=== PATIENT | male | born 1970 | race Hispanic/Latino ===

== ENCOUNTER 2020-08-30 10:10 | Inpatient (IN) | payer BC, OTHER ==
[2020-08-30] MEDS ORDERED: Nitroglycerin 0.4 MG TAB 1 EACH ONE (10:25)
[2020-08-30] MEDS ORDERED: Aspirin Chewable 81 MG TAB ONE (10:25)
[2020-08-30] MEDS ORDERED: Nitroglycerin 2% Ointment 1 INCH/1 GM Packet ONE (10:25)
[2020-08-30 11:14] LABS: ALT (SGPT) 37 U/L (8-55); AST (SGOT) 30 U/L (5-34); Albumin 4.1 g/dL (3.5-5.0); Alkaline Phosphatase 71 U/L (40-110); Anion Gap 13 mmol/L (10-20); BUN (Urea Nitrogen) 13 mg/dL (8.9-20.6); Bilirubin, Total 0.7 mg/dL (0.2-1.2); Calc. Creatinine Clearance 0 mL/min (70-130); Calcium 9.5 mg/dL (7.8-10.44); Carbon Dioxide 24 mmol/L (22-29); Chloride 107 mmol/L (98-107); Globulin 3.3 g/dL (2.4-3.5); Glucose 77 mg/dL (70-105); Potassium 4.2 mmol/L (3.5-5.1); Protein, Total 7.4 g/dL (6.0-8.3); Sodium 140 mmol/L (136-145)
[2020-08-30 11:15] LABS: Hemoglobin 15.3 g/dL (14.0-18.0); Mean Corpuscular HGB CONC 32.9 g/dL (32.0-36.0); Mean Corpuscular Hemoglobin 32.4 pg (27.0-31.0); Mean Corpuscular Volume 98.3 fL (78.0-98.0); Mean Platelet Volume 8.7 fL (7.4-10.4); Platelet Count 244 thou/uL (130-400); RBC Distribution Width 12.4 % (11.5-14.5); Red Blood Cell (RBC) Count 4.73 mill/uL (4.70-6.10)
[2020-08-30 11:19] LABS: Band 4 % (5-11); Eosinophils 1 % (0-10); Lymphocytes 41 % (21-51); MDiff Complete? YES; Monocytes 11 % (0-10); Myelocyte 1 % (0-0); Neutrophil 35 % (42-75); Platelet Morphology Comment Appears Adequate; RBC Morphology Normal; Reactive Lymphocytes 6 % (0-10); White Blood Cell (WBC) Count 5.6 thou/uL (4.8-10.8)
[2020-08-30 11:43] LABS: CKMB 6.5 ng/mL (0-6.6)
[2020-08-30] MEDS ORDERED: Enoxaparin Sodium 80 MG/0.8 ML SYRINGE ONE (11:50)
[2020-08-30] MEDS ORDERED: Bisacodyl 10 MG SUPP PR PRN (11:56)
[2020-08-30] MEDS ORDERED: Senokot S 8.6-50 MG TAB PO PRN (11:56)
[2020-08-30] MEDS ORDERED: Calcium Carbonate 500 MG ChewTAB PO PRN (11:56)
[2020-08-30] MEDS ORDERED: Guaifenesin DM 100-10/5 ML UDCUP PO PRN (11:56)
[2020-08-30] MEDS ORDERED: Ondansetron PF 4 MG/2 ML Vial IVP PRN (11:56)
[2020-08-30] MEDS ORDERED: Sodium Chloride 0.9% 1,000 ML IV SCH (12:00)
[2020-08-30 12:49] LABS: Troponin I 0.541 ng/mL (< 0.028)
[2020-08-30 12:58] LABS: SARS-CoV-2 NAA Rapid Test Not Detected (NotDetected)
[2020-08-30 13:54] VITALS: BMI 27.5
[2020-08-30 15:08] LABS: Troponin I 0.996 ng/mL (< 0.028)
[2020-08-30 15:36] LABS: Troponin I 1.635 ng/mL (< 0.028)
[2020-08-30] MEDS: Nitroglycerin 2% Ointment 1 INCH/1 GM Packet TOP SCH ×2 (15:42→20:30)
[2020-08-30] MEDS: Acetaminophen 325 MG TAB PO PRN (17:53)
[2020-08-30 17:55] LABS: Troponin I 2.592 ng/mL (< 0.028)
[2020-08-30] MEDS ORDERED: Communication Order-Pharmacy FS SCH (19:00)
[2020-08-30] MEDS: Sodium Chloride 0.9% 1,000 ML IV SCH (20:28)
[2020-08-30] MEDS ORDERED: Enoxaparin Sodium 80 MG/0.8 ML SYRINGE SC SCH (21:00)
[2020-08-30] MEDS ORDERED: Metoprolol Tartrate 25 MG TAB PO SCH (21:00)
[2020-08-31] MEDS: Sodium Chloride 0.9% 1,000 ML IV SCH ×2 (01:24→18:07)
[2020-08-31 06:02] LABS: Anion Gap 10 mmol/L (10-20); BUN (Urea Nitrogen) 15 mg/dL (8.9-20.6); Calc. Creatinine Clearance 85 mL/min (70-130); Calcium 9.1 mg/dL (7.8-10.44); Carbon Dioxide 26 mmol/L (22-29); Cardiac Risk 4.7 (Less than 4.5); Chloride 108 mmol/L (98-107); Cholesterol 177 mg/dl (< 200 Desired); Glucose 89 mg/dL (70-105); HDL Cholesterol 38 mg/dL (>60 Neg Risk); LDL Cholesterol, Calculated 104 mg/dL; Potassium 4.3 mmol/L (3.5-5.1); Sodium 140 mmol/L (136-145); Triglycerides 176 mg/dL (Less than 150)
[2020-08-31 06:18] LABS: Band 8 % (5-11); Eosinophils 1 % (0-10); Hemoglobin 15.1 g/dL (14.0-18.0); Lymphocytes 61 % (21-51); MDiff Complete? YES; Mean Corpuscular HGB CONC 32.5 g/dL (32.0-36.0); Mean Corpuscular Hemoglobin 32.3 pg (27.0-31.0); Mean Corpuscular Volume 99.1 fL (78.0-98.0); Mean Platelet Volume 8.7 fL (7.4-10.4); Monocytes 11 % (0-10); Neutrophil 19 % (42-75); Platelet Count 249 thou/uL (130-400); RBC Distribution Width 12.3 % (11.5-14.5); Red Blood Cell (RBC) Count 4.68 mill/uL (4.70-6.10); White Blood Cell (WBC) Count 4.9 thou/uL (4.8-10.8)
[2020-08-31] MEDS: Nitroglycerin 2% Ointment 1 INCH/1 GM Packet TOP SCH ×3 (06:27→21:07)
[2020-08-31] MEDS: Aspirin Chewable 81 MG TAB PO SCH (06:27)
[2020-08-31] MEDS ORDERED: Lidocaine 1% (PF) 30 ML VIAL ONE (07:40)
[2020-08-31] MEDS ORDERED: Fentanyl 100 MCG/2 ML VIAL ONE (08:06)
[2020-08-31] MEDS ORDERED: Midazolam HCl 2 mg/2 ml Vial ONE (08:06)
[2020-08-31] MEDS ORDERED: Heparin 10,000 UNITS/ 10 ML VIAL ONE ×2 (08:23→08:56)
[2020-08-31] MEDS ORDERED: Nitroglycerin 100MG/250ML BOT 250 ML ONE (08:32)
[2020-08-31] MEDS ORDERED: Enoxaparin Sodium 40 MG/0.4 ML SYRINGE SC SCH (09:00)
[2020-08-31] MEDS ORDERED: TICAGRELOR 90 MG TABLET ONE (09:50)
[2020-08-31] MEDS ORDERED: Nitroglycerin 50 MG/250 ML BOT 250 ML ONE (09:58)
[2020-08-31] MEDS ORDERED: Nitroglycerin 50 MG/250 ML BOT 250 ML IVPB SCH (10:15)
[2020-08-31] MEDS ORDERED: TICAGRELOR 90 MG TABLET PO SCH (10:30)
[2020-08-31] MEDS ORDERED: Iopamidol 370 76% 100 ML VIAL ONE (11:58)
[2020-08-31] MEDS ORDERED: Iopamidol 370 76% 50 ML VIAL FS ONE (11:58)
[2020-08-31] MEDS: Acetaminophen 325 MG TAB PO PRN ×2 (12:36→20:01)
[2020-08-31] MEDS: Atorvastatin Calcium 40 MG TAB PO SCH (20:01)
[2020-08-31] MEDS: TICAGRELOR 90 MG TABLET PO SCH (20:02)
[2020-09-01 03:48] LABS: #Basophils 0.1 thou/uL (0.0-0.2); #Eosinphils 0.2 thou/uL (0.0-0.7); #Lymphocytes 2.4 thou/uL (1.20-3.40); #Monocytes 0.8 thou/uL (0.11-0.59); #Neutrophils 3.5 thou/uL (1.40-6.50); %Basophils 1.1 % (0.0-1.0); %Eosinophils 2.6 % (0.0-10.0); %Lymphocytes 35.1 % (21.0-51.0); %Monocytes 10.9 % (0.0-10.0); %Neutrophils 50.4 % (42.0-75.0); Mean Corpuscular HGB CONC 32.4 g/dL (32.0-36.0); Mean Corpuscular Hemoglobin 32.2 pg (27.0-31.0); Mean Corpuscular Volume 99.3 fL (78.0-98.0); Mean Platelet Volume 8.9 fL (7.4-10.4); Platelet Count 218 thou/uL (130-400); RBC Distribution Width 12.4 % (11.5-14.5); Red Blood Cell (RBC) Count 4.35 mill/uL (4.70-6.10); White Blood Cell (WBC) Count 6.9 thou/uL (4.8-10.8)
[2020-09-01 04:05] LABS: ALT (SGPT) 31 U/L (8-55); AST (SGOT) 33 U/L (5-34); Albumin 3.6 g/dL (3.5-5.0); Alkaline Phosphatase 64 U/L (40-110); Anion Gap 11 mmol/L (10-20); BUN (Urea Nitrogen) 10 mg/dL (8.9-20.6); Bilirubin, Total 0.8 mg/dL (0.2-1.2); Calc. Creatinine Clearance 88 mL/min (70-130); Calcium 9.1 mg/dL (7.8-10.44); Carbon Dioxide 26 mmol/L (22-29); Chloride 107 mmol/L (98-107); Globulin 2.7 g/dL (2.4-3.5); Glucose 84 mg/dL (70-105); Potassium 3.9 mmol/L (3.5-5.1); Protein, Total 6.3 g/dL (6.0-8.3); Sodium 140 mmol/L (136-145)
[2020-09-01] MEDS: Nitroglycerin 2% Ointment 1 INCH/1 GM Packet TOP SCH ×2 (05:23→15:23)
[2020-09-01] MEDS: Sodium Chloride 0.9% 1,000 ML IV SCH (05:24)
[2020-09-01] MEDS: Aspirin Chewable 81 MG TAB PO SCH (08:14)
[2020-09-01] MEDS: TICAGRELOR 90 MG TABLET PO SCH ×2 (08:14→21:16)
[2020-09-01] MEDS: Acetaminophen 325 MG TAB PO PRN ×2 (08:15→13:24)
[2020-09-01] MEDS: Atorvastatin Calcium 40 MG TAB PO SCH (21:16)
[2020-09-02] MEDS: Cyanocobalamin (Vitamin B-12) 1,000 MCG TAB PO SCH (09:39)
[2020-09-02] MEDS: TICAGRELOR 90 MG TABLET PO SCH ×2 (09:39→20:40)
[2020-09-02] MEDS: Folic Acid 1 MG TAB PO SCH (09:39)
[2020-09-02] MEDS: Multivit, Therapeutic 1 TAB PO SCH (09:39)
[2020-09-02] MEDS: Aspirin Chewable 81 MG TAB PO SCH (09:39)
[2020-09-02] MEDS: Atorvastatin Calcium 40 MG TAB PO SCH (20:40)
[2020-09-03] MEDS: Folic Acid 1 MG TAB PO SCH (08:57)
[2020-09-03] MEDS: Cyanocobalamin (Vitamin B-12) 1,000 MCG TAB PO SCH (08:57)
[2020-09-03] MEDS: Aspirin Chewable 81 MG TAB PO SCH (08:57)
[2020-09-03] MEDS: TICAGRELOR 90 MG TABLET PO SCH (08:57)
[2020-09-03] MEDS: Multivit, Therapeutic 1 TAB PO SCH (08:57)
[2020-09-03 09:49] VITALS: BP 110/58; TEMP 97.3
== END 2020-09-03 10:15 | disposition home or self-care (01) | DRG 247 ==
LOC: ERS 10:10 → 2SW 11:57 → OBSVTOIN 11:57 → 2SW 13:22 → CCU 08-31 12:30 → 2NO 09-01 18:13
PROVIDERS: ADMIT Internal Medicine; ATTEND Internal Medicine
PROC: 027034Z Dilation of Coronary Artery, One Artery with Drug-eluting Intraluminal Device, Percutaneous Approach (ICD-10-PCS; principal; 2020-08-31)
PROC: 4A023N7 Measurement of Cardiac Sampling and Pressure, Left Heart, Percutaneous Approach (ICD-10-PCS; 2020-08-31)
PROC: B2111ZZ Fluoroscopy of Multiple Coronary Arteries using Low Osmolar Contrast (ICD-10-PCS; 2020-08-31)
PROC: B2151ZZ Fluoroscopy of Left Heart using Low Osmolar Contrast (ICD-10-PCS; 2020-08-31)
DX: I21.4 Non-ST elevation (NSTEMI) myocardial infarction (principal); E78.5 Hyperlipidemia, unspecified; I25.119 Atherosclerotic heart disease of native coronary artery with unspecified angina pectoris; I08.1 Rheumatic disorders of both mitral and tricuspid valves; N18.2 Chronic kidney disease, stage 2 (mild); Z20.822 Contact with and (suspected) exposure to COVID-19; Z90.81 Acquired absence of spleen; Z87.891 Personal history of nicotine dependence; Z98.890 Other specified postprocedural states
CPT/HCPCS: 0240U; 36415; 71045; 76942; 80048; 80053; 80061; 82553; 83880; 84484; 85025; 85347; 85379; 92928; 93005; 93010; 93306; 93458; 93798; 94760; 96372; 99152; 99153; C9600; G0378; J1644; J1650; J2001; J2250; J3010; Q9967

== ENCOUNTER 2020-09-25 10:08 | Outpatient (CLI) | payer BC ==
[2020-09-25 11:41] LABS: #Eosinphils 0.1 10x3/uL (0.0-0.5); #Monocytes 0.7 10x3/uL (0.0-1.1); #Neutrophils 1.8 10x3/uL (1.5-8.4); %Basophils 0.9 % (0.0-2.0); %Eosinophils 1.6 % (0.0-6.0); %Lymphocytes 38.1 % (18.0-47.0); %Monocytes 17.1 % (0.0-10.0); %Neutrophils 42.1 % (40.0-75.0); Hemoglobin 15.1 g/dL (13.5-17.5); Mean Corpuscular HGB CONC 32.8 g/dL (32.0-36.0); Mean Corpuscular Hemoglobin 31.5 pg (27.0-33.0); Mean Corpuscular Volume 96.2 fl (81.2-95.1); Mean Platelet Volume 11.8 fl (7.4-10.4); Platelet Count 273 10x3/uL (150-450); RBC Distribution Width 13.8 % (11.5-14.5); Red Blood Cell (RBC) Count 4.79 10x6/uL (4.32-5.72); White Blood Cell (WBC) Count 4.3 10x3/uL (3.5-10.5)
[2020-09-25 11:59] LABS: PTT 27.9 sec (22.0-33.0); Prothrombin Time 10.9 sec (9.5-12.1)
[2020-09-25 12:02] LABS: ALT (SGPT) 64 U/L (8-55); AST (SGOT) 33 U/L (5-34); Albumin 4.4 g/dL (3.5-5.0); Alkaline Phosphatase 83 U/L (40-110); Anion Gap 14 mmol/L (10-20); BUN (Urea Nitrogen) 14 mg/dL (8.9-20.6); Bilirubin, Total 0.7 mg/dL (0.2-1.2); Calc. Creatinine Clearance 0 mL/min (70-130); Carbon Dioxide 26 mmol/L (22-29); Chloride 105 mmol/L (98-107); Globulin 3.1 g/dL (2.4-3.5); Glucose 74 mg/dL (70-105); Protein, Total 7.5 g/dL (6.0-8.3); Sodium 140 mmol/L (136-145)
[2020-09-25 20:37] LABS: SARS-CoV-2 PCR by NAA Not Detected (NotDetected)
== END 2020-09-25 10:09 | disposition home or self-care (01) ==
LOC: LABBT 10:08
PROVIDERS: ATTEND Internal Medicine Cardiovascular Disease
DX: Z01.812 Encounter for preprocedural laboratory examination (principal); Z20.822 Contact with and (suspected) exposure to COVID-19; I25.10 Atherosclerotic heart disease of native coronary artery without angina pectoris
CPT/HCPCS: 80053; 85025; 85610; 85730; 87635; U0003; U0005

== ENCOUNTER 2020-09-30 05:55 | Day surgery (SDC) | payer BC ==
[2020-09-27 10:04] VITALS: BMI 28.6
[2020-09-30] MEDS ORDERED: Lidocaine 1% (PF) 30 ML VIAL ONE (06:52)
[2020-09-30] MEDS ORDERED: Midazolam HCl 2 mg/2 ml Vial ONE (07:25)
[2020-09-30] MEDS ORDERED: Fentanyl 100 MCG/2 ML VIAL ONE (07:25)
[2020-09-30] MEDS ORDERED: Heparin 10,000 UNITS/ 10 ML VIAL ONE (07:50)
[2020-09-30] MEDS ORDERED: Nitroglycerin 100MG/250ML BOT 250 ML ONE (07:50)
[2020-09-30] MEDS ORDERED: Iopamidol 370 76% 100 ML VIAL ONE (10:53)
[2020-09-30] MEDS ORDERED: Iopamidol 370 76% 50 ML VIAL FS ONE (10:53)
[2020-09-30] MEDS ORDERED: Acetaminophen 325 MG TAB ONE (17:57)
== END 2020-09-30 19:00 | disposition home or self-care (01) ==
LOC: CCL 05:55
PROVIDERS: ATTEND Internal Medicine Cardiovascular Disease
PROC: B2111ZZ Fluoroscopy of Multiple Coronary Arteries using Low Osmolar Contrast (ICD-10-PCS; principal; 2020-09-30)
PROC: 4A023N7 Measurement of Cardiac Sampling and Pressure, Left Heart, Percutaneous Approach (ICD-10-PCS; principal; 2020-09-30)
DX: I25.10 Atherosclerotic heart disease of native coronary artery without angina pectoris (principal); E78.00 Pure hypercholesterolemia, unspecified; Z79.02 Long term (current) use of antithrombotics/antiplatelets; Z79.82 Long term (current) use of aspirin; Z79.899 Other long term (current) drug therapy
CPT/HCPCS: 76942; 85347; 92928; 93005; 93458; 97139; 99152; 99153; C1874; C9600; J1644; J2001; J2250; J3010; Q9967

== ENCOUNTER 2021-08-20 10:28 | Observation (INO) | payer BC ==
[2021-08-20 11:07] LABS: Hemoglobin 14.7 g/dL (14.0-18.0); Mean Corpuscular HGB CONC 32.2 g/dL (32.0-36.0); Mean Corpuscular Hemoglobin 32.9 pg (27.0-31.0); Mean Platelet Volume 8.2 fL (7.4-10.4); Platelet Count 225 thou/uL (130-400); RBC Distribution Width 12.3 % (11.5-14.5); Red Blood Cell (RBC) Count 4.45 mill/uL (4.70-6.10); White Blood Cell (WBC) Count 5.4 thou/uL (4.8-10.8)
[2021-08-20] MEDS ORDERED: Aspirin Chewable 81 MG TAB ONE (11:11)
[2021-08-20 11:17] LABS: ALT (SGPT) 47 U/L (8-55); AST (SGOT) 33 U/L (5-34); Albumin 4.2 g/dL (3.5-5.0); Alkaline Phosphatase 56 U/L (40-110); Anion Gap 13 mmol/L (10-20); BUN (Urea Nitrogen) 16 mg/dL (8.9-20.6); Bilirubin, Total 0.5 mg/dL (0.2-1.2); CK (CPK) 330 U/L (30-200); Calc. Creatinine Clearance 0 mL/min (70-130); Calcium 9.3 mg/dL (7.8-10.44); Carbon Dioxide 23 mmol/L (22-29); Chloride 108 mmol/L (98-107); Globulin 2.5 g/dL (2.4-3.5); Glucose 87 mg/dL (70-105); Potassium 4.1 mmol/L (3.5-5.1); Protein, Total 6.7 g/dL (6.0-8.3); Sodium 140 mmol/L (136-145)
[2021-08-20 11:29] LABS: Band 5 % (5-11); Burr Cells SLIGHT = 2-5 cells (100X) (0-1/hpf); Eosinophils 1 % (0-10); Lymphocytes 32 % (21-51); MDiff Complete? YES; Macrocytosis MODERATE=16-30 cells (100X) (0-5/hpf); Monocytes 11 % (0-10); Neutrophil 49 % (42-75); Ovalocytes SLIGHT = 2-5 cells (100X) (0-1/hpf); Platelet Morphology Comment Appears Adequate
[2021-08-20 14:08] LABS: Troponin I Less than 0.010 ng/mL (< 0.028)
[2021-08-20 14:14] VITALS: BMI 28.5
[2021-08-20] MEDS ORDERED: Ondansetron PF 4 MG/2 ML Vial IVP PRN (16:41)
[2021-08-20] MEDS ORDERED: hydrALAZINE 20 MG/ML VIAL SLOW IVP PRN (16:41)
[2021-08-20] MEDS ORDERED: Nitroglycerin 0.4 MG TAB (25 Tab Bottle) SL PRN (16:41)
[2021-08-20] MEDS ORDERED: Acetaminophen 500 MG TAB PO PRN (16:41)
[2021-08-20] MEDS ORDERED: Ondansetron ODT 4 MG TAB PO PRN (16:41)
[2021-08-20 17:09] LABS: Troponin I Less than 0.010 ng/mL (< 0.028)
[2021-08-20] MEDS: TICAGRELOR 90 MG TABLET PO SCH (20:44)
[2021-08-20] MEDS: Famotidine 20 MG TAB PO SCH (20:44)
[2021-08-20] MEDS ORDERED: Atorvastatin Calcium 40 MG TAB PO SCH (21:00)
[2021-08-20 23:23] LABS: SARS-CoV-2 PCR by NAA Not Detected (NotDetected)
[2021-08-21 08:16] VITALS: TEMP 97.6
[2021-08-21] MEDS ORDERED: Aspirin Chewable 81 MG TAB PO SCH (09:00)
[2021-08-21] MEDS ORDERED: Multivit, Therapeutic 1 TAB PO SCH (09:00)
[2021-08-21] MEDS: Famotidine 20 MG TAB PO SCH (14:00)
[2021-08-21] MEDS: TICAGRELOR 90 MG TABLET PO SCH (14:09)
[2021-08-21 14:19] VITALS: BP 123/69
== END 2021-08-21 15:38 | disposition home or self-care (01) ==
LOC: ERS 10:28 → 2SW 12:44 → OBSVTOIN 16:41 → INTOOBSV 16:41
PROVIDERS: ADMIT Family Medicine; ATTEND Internal Medicine
DX: R07.9 Chest pain, unspecified (principal); I25.10 Atherosclerotic heart disease of native coronary artery without angina pectoris; I25.2 Old myocardial infarction; E78.5 Hyperlipidemia, unspecified; N18.2 Chronic kidney disease, stage 2 (mild); Z87.891 Personal history of nicotine dependence; Z79.02 Long term (current) use of antithrombotics/antiplatelets; Z79.82 Long term (current) use of aspirin; Z79.899 Other long term (current) drug therapy; Z95.5 Presence of coronary angioplasty implant and graft; Z20.822 Contact with and (suspected) exposure to COVID-19
CPT/HCPCS: 36415; 71045; 78452; 80053; 80061; 82550; 83690; 83880; 84484; 85025; 85379; 93005; 93017; A9500; G0378; U0003; U0005

== ENCOUNTER 2022-03-24 00:49 | Inpatient (IN) | payer BC ==
[2022-03-24 02:01] LABS: #Basophils 0.1 thou/uL (0.0-0.2); #Eosinphils 0.1 thou/uL (0.0-0.7); #Lymphocytes 3.3 thou/uL (1.20-3.40); #Monocytes 0.8 thou/uL (0.11-0.59); #Neutrophils 2.6 thou/uL (1.40-6.50); %Basophils 1.2 % (0.0-1.0); %Lymphocytes 48.5 % (21.0-51.0); %Monocytes 11.3 % (0.0-10.0); Hemoglobin 13.5 g/dL (14.0-18.0); Mean Corpuscular HGB CONC 31.6 g/dL (32.0-36.0); Mean Corpuscular Hemoglobin 31.3 pg (27.0-31.0); Mean Platelet Volume 8.7 fL (7.4-10.4); Platelet Count 220 10x3/uL (130-400); RBC Distribution Width 11.8 % (11.5-14.5); White Blood Cell (WBC) Count 6.9 10x3/uL (4.8-10.8)
[2022-03-24 02:12] LABS: INR-International Normal Ratio 0.9; Prothrombin Time 12.8 sec (12.0-14.7)
[2022-03-24 02:22] LABS: ALT (SGPT) 37 U/L (8-55); AST (SGOT) 29 U/L (5-34); Albumin 4.3 g/dL (3.5-5.0); Alkaline Phosphatase 66 U/L (40-110); Anion Gap 11 mmol/L (10-20); BUN (Urea Nitrogen) 19 mg/dL (8.9-20.6); Bilirubin, Total 0.4 mg/dL (0.2-1.2); Calc. Creatinine Clearance 0 mL/min (70-130); Calcium 9.1 mg/dL (7.8-10.44); Carbon Dioxide 26 mmol/L (22-29); Chloride 106 mmol/L (98-107); Estimated GFR 83; Globulin 2.9 g/dL (2.4-3.5); Glucose 82 mg/dL (70-105); Protein, Total 7.2 g/dL (6.0-8.3); Sodium 139 mmol/L (136-145)
[2022-03-24] MEDS ORDERED: Ondansetron ODT 4 MG TAB SL PRN (04:45)
[2022-03-24] MEDS ORDERED: Ondansetron PF 4 MG/2 ML Vial IVP PRN (04:45)
[2022-03-24] MEDS ORDERED: Acetaminophen 325 MG TAB PO PRN (04:58)
[2022-03-24] MEDS: Sodium Chloride 0.9% 1,000 ML IV SCH ×3 (06:06→21:01)
[2022-03-24 07:55] LABS: Hemoglobin 11.1 g/dL (14.0-18.0)
[2022-03-24] MEDS: Docusate 100 MG CAP PO SCH ×2 (08:31→21:05)
[2022-03-24] MEDS ORDERED: Iopamidol 370 76% 100 ML VIAL ONE (08:41)
[2022-03-24] MEDS ORDERED: FLU VACC QS2022-23(6MOS UP)/PF 60 MCG/0.5 ML SYRINGE IM ONE (09:15)
[2022-03-24 15:18] LABS: Hemoglobin 9.8 g/dL (14.0-18.0)
[2022-03-24 17:11] VITALS: BMI 28.1
[2022-03-24] MEDS ORDERED: GoLYTELY 4,000 ml Bottle PO SCH (17:30)
[2022-03-24 20:33] LABS: Hemoglobin 8.8 g/dL (14.0-18.0)
[2022-03-24 23:50] LABS: Hemoglobin 9.6 g/dL (14.0-18.0)
[2022-03-25 01:33] LABS: SARS-CoV-2 NAA Rapid Test Not Detected (NotDetected)
[2022-03-25 03:54] LABS: #Lymphocytes 2.2 thou/uL (1.20-3.40); #Monocytes 0.5 thou/uL (0.11-0.59); #Neutrophils 2.9 thou/uL (1.40-6.50); %Basophils 0.6 % (0.0-1.0); %Eosinophils 0.9 % (0.0-10.0); %Lymphocytes 38.3 % (21.0-51.0); %Monocytes 8.9 % (0.0-10.0); %Neutrophils 51.4 % (42.0-75.0); Hemoglobin 8.1 g/dL (14.0-18.0); Mean Corpuscular HGB CONC 32.4 g/dL (32.0-36.0); Mean Corpuscular Hemoglobin 32.2 pg (27.0-31.0); Mean Corpuscular Volume 99.2 fl (78.0-98.0); Mean Platelet Volume 8.6 fL (7.4-10.4); Platelet Count 201 10x3/uL (130-400); RBC Distribution Width 11.7 % (11.5-14.5); Red Blood Cell (RBC) Count 2.52 mill/uL (4.70-6.10); White Blood Cell (WBC) Count 5.7 10x3/uL (4.8-10.8)
[2022-03-25 04:25] LABS: Anion Gap 8 mmol/L (10-20); BUN (Urea Nitrogen) 11 mg/dL (8.9-20.6); Calc. Creatinine Clearance 128 mL/min (70-130); Calcium 7.8 mg/dL (7.8-10.44); Carbon Dioxide 26 mmol/L (22-29); Chloride 106 mmol/L (98-107); Estimated GFR 110; Glucose 80 mg/dL (70-105); Potassium 3.7 mmol/L (3.5-5.1); Sodium 136 mmol/L (136-145)
[2022-03-25] MEDS: Sodium Chloride 0.9% 1,000 ML IV SCH (05:34)
[2022-03-25] MEDS: Docusate 100 MG CAP PO SCH ×2 (09:33→20:34)
[2022-03-25] MEDS ORDERED: PROPOFOL 200 MG/20 ML VIAL ONE (12:35)
[2022-03-25] MEDS ORDERED: PHENYLEPHRINE-NS 100 MCG/ML 10 ML SYRINGE ONE (12:35)
[2022-03-25 14:53] LABS: Hemoglobin 8.5 g/dL (14.0-18.0)
[2022-03-25] MEDS ORDERED: Iron, Sodium Ferric Gluconate 250 MG in Sodium Chloride 0.9% 250 ML 250 ML IVPB SCH (19:30)
[2022-03-25 21:40] LABS: Hemoglobin 7.8 g/dL (14.0-18.0)
[2022-03-26 06:47] LABS: Mean Corpuscular HGB CONC 33.6 g/dL (32.0-36.0); Mean Corpuscular Hemoglobin 33.5 pg (27.0-31.0); Mean Corpuscular Volume 99.8 fl (78.0-98.0); Mean Platelet Volume 8.7 fL (7.4-10.4); Platelet Count 190 10x3/uL (130-400); RBC Distribution Width 11.7 % (11.5-14.5); Red Blood Cell (RBC) Count 2.37 mill/uL (4.70-6.10); White Blood Cell (WBC) Count 4.6 10x3/uL (4.8-10.8)
[2022-03-26 07:09] LABS: Anion Gap 9 mmol/L (10-20); BUN (Urea Nitrogen) 10 mg/dL (8.9-20.6); Calc. Creatinine Clearance 118 mL/min (70-130); Calcium 8.1 mg/dL (7.8-10.44); Carbon Dioxide 23 mmol/L (22-29); Chloride 104 mmol/L (98-107); Estimated GFR 107; Glucose 87 mg/dL (70-105); Potassium 3.7 mmol/L (3.5-5.1); Sodium 132 mmol/L (136-145)
[2022-03-26 07:31] LABS: Band 11 % (5-11); Eosinophils 2 % (0-10); Lymphocytes 61 % (21-51); MDiff Complete? YES; Monocytes 4 % (0-10); Neutrophil 20 % (42-75); Platelet Morphology Comment Appears Adequate; RBC Morphology Normal
[2022-03-26 08:02] VITALS: BP 102/63; TEMP 97.7
[2022-03-26] MEDS ORDERED: Clopidogrel Bisulfate 75 MG TAB PO SCH (09:00)
[2022-03-26] MEDS: Docusate 100 MG CAP PO SCH (11:15)
== END 2022-03-26 14:37 | disposition home or self-care (01) | DRG 920 ==
LOC: ERS 00:49 → ERHOLD 04:36 → IMCU/EMU 05:45 → SURG A 03-25 13:38 → T4-A 03-25 14:11
PROVIDERS: ADMIT Internal Medicine; ATTEND Internal Medicine
PROC: 6A550Z2 Pheresis of Platelets, Single (ICD-10-PCS; 2022-03-24)
PROC: 0W3P8ZZ Control Bleeding in Gastrointestinal Tract, Via Natural or Artificial Opening Endoscopic (ICD-10-PCS; principal; 2022-03-25)
DX: K91.840 Postprocedural hemorrhage of a digestive system organ or structure following a digestive system procedure (principal); D62 Acute posthemorrhagic anemia; Z20.822 Contact with and (suspected) exposure to COVID-19; I25.10 Atherosclerotic heart disease of native coronary artery without angina pectoris; E78.5 Hyperlipidemia, unspecified; Y84.8 Other medical procedures as the cause of abnormal reaction of the patient, or of later complication, without mention of misadventure at the time of the procedure; Z86.010 Personal history of colon polyps; Z95.5 Presence of coronary angioplasty implant and graft; Z87.891 Personal history of nicotine dependence
CPT/HCPCS: 36415; 36430; 74177; 80048; 80053; 85025; 85610; 85730; 86850; 86900; 86901; C1776; J2597; J2704; J2916; J7050; P9035; Q9967; U0002

== ENCOUNTER 2024-06-16 19:23 | Emergency (ER) | payer BC ==
[2024-06-16] MEDS ORDERED: Acetaminophen 325 MG TAB ONE (19:51)
== END 2024-06-16 21:35 | disposition home or self-care (01) ==
LOC: ERS 19:23
DX: S80.02XA Contusion of left knee, initial encounter (principal); S60.221A Contusion of right hand, initial encounter; S50.811A Abrasion of right forearm, initial encounter; R07.89 Other chest pain; F17.220 Nicotine dependence, chewing tobacco, uncomplicated; E78.00 Pure hypercholesterolemia, unspecified; V49.9XXA Car occupant (driver) (passenger) injured in unspecified traffic accident, initial encounter
CPT/HCPCS: 70450; 71045